=== PATIENT | male | born 1965 | race Caucasian/White ===

== ENCOUNTER 2024-06-22 10:59 | Emergency (ER) | payer OTHER ==
[~2024-06-22] VITALS: Ht 165.1 cm; Wt 72.6 kg
[2024-06-22 11:05] VITALS: BP 121/69; TEMP 98; O2SAT 99
[2024-06-22] MEDS ORDERED: ACETAMINOPHEN ES 500 MG TABLET ONE (11:34)
[2024-06-22] MEDS ORDERED: IBUPROFEN 600 MG TABLET ONE (11:34)
[2024-06-22] MEDS: ACETAMINOPHEN ES 500 MG TABLET PO ONE (11:36)
[2024-06-22] MEDS: IBUPROFEN 600 MG TABLET PO ONE (11:36)
[2024-06-22] MEDS ORDERED: KETO10TA2 PO (13:48)
== END 2024-06-22 14:13 | disposition home or self-care (01) ==
LOC: ER 11:21
DX: S92.414A Nondisplaced fracture of proximal phalanx of right great toe, initial encounter for closed fracture (principal); S97.81XA Crushing injury of right foot, initial encounter; F19.10 Other psychoactive substance abuse, uncomplicated; Z59.00 Homelessness unspecified; W23.0XXA Caught, crushed, jammed, or pinched between moving objects, initial encounter; Y93.89 Activity, other specified; Y92.89 Other specified places as the place of occurrence of the external cause; Y99.8 Other external cause status
CPT/HCPCS: 73630-TC

== ENCOUNTER 2024-07-16 09:01 | Emergency (ER) | payer OTHER ==
[~2024-07-16] VITALS: Ht 180.3 cm; Wt 72.6 kg
[~2024-07-16 09:01] MED LIST: KETO10TA2 PO
[2024-07-16 09:17] VITALS: BP 146/104; TEMP 97.9
[2024-07-16] MEDS ORDERED: CLIN300C12 PO (09:30)
[2024-07-16] MEDS ORDERED: PERM60CR6 TP (09:30)
[2024-07-16 09:50] VITALS: O2SAT 99
== END 2024-07-16 09:50 | disposition home or self-care (01) ==
LOC: ER 09:17
DX: R20.2 Paresthesia of skin (principal); L03.114 Cellulitis of left upper limb; Z59.00 Homelessness unspecified

== ENCOUNTER 2024-07-20 09:47 | Emergency (ER) | payer OTHER ==
[~2024-07-20] VITALS: Ht 170.2 cm; Wt 72.6 kg
[~2024-07-20 09:47] MED LIST changes: +CLIN300C12 PO; +PERM60CR6 TP
[2024-07-20] MEDS ORDERED: PERM60CR6 TP (10:32)
[2024-07-20] MEDS ORDERED: CLIN300C12 PO (10:32)
[2024-07-20 10:51] VITALS: BP 119/77; TEMP 98; O2SAT 98
== END 2024-07-20 10:51 | disposition home or self-care (01) ==
LOC: ER 09:53
DX: L03.114 Cellulitis of left upper limb (principal); Z76.0 Encounter for issue of repeat prescription; Z59.00 Homelessness unspecified

== ENCOUNTER 2024-07-30 12:17 | Emergency (ER) | payer OTHER ==
[~2024-07-30] VITALS: Ht 177.8 cm; Wt 74.8 kg
[2024-07-30 13:04] VITALS: BP 128/84; TEMP 98
[2024-07-30] MEDS ORDERED: SULF1TAB48 PO (13:12)
[2024-07-30] MEDS ORDERED: CEPH-570 PO (13:12)
[2024-07-30 13:16] VITALS: O2SAT 98
== END 2024-07-30 13:16 | disposition home or self-care (01) ==
LOC: ER 12:46
DX: S60.512A Abrasion of left hand, initial encounter (principal); S60.511A Abrasion of right hand, initial encounter; S00.81XA Abrasion of other part of head, initial encounter; S90.811A Abrasion, right foot, initial encounter; L98.9 Disorder of the skin and subcutaneous tissue, unspecified; F19.10 Other psychoactive substance abuse, uncomplicated; Z60.2 Problems related to living alone; Z59.00 Homelessness unspecified; X58.XXXA Exposure to other specified factors, initial encounter; Y93.89 Activity, other specified; Y92.89 Other specified places as the place of occurrence of the external cause; Y99.8 Other external cause status

== ENCOUNTER 2024-08-14 05:13 | Emergency (ER) | payer OTHER ==
[~2024-08-14] VITALS: Ht 175.3 cm; Wt 79.4 kg
[~2024-08-14 05:13] MED LIST changes: +CEPH-570 PO; +SULF1TAB48 PO
[2024-08-14] MEDS ORDERED: TDAP [DIPH/PERTUSSIS/TET] 0.5 ML VIAL IM ONE (06:39)
[2024-08-14] MEDS: TDAP [DIPH/PERTUSSIS/TET] 0.5 ML VIAL IM ONE (06:42)
[2024-08-14] MEDS ORDERED: LIDOCAINE 1% INJ 50 ML MDV IJ ONE (07:02)
[2024-08-14] MEDS ORDERED: TETRAcaine 5 ML BOTTLE ONE (07:02)
[2024-08-14] MEDS ORDERED: FLUORESCEIN SODIUM OPHTH 1 EA STRIP ONE (07:03)
[2024-08-14] MEDS: LIDOCAINE 1% INJ 50 ML MDV IJ ONE (07:14)
[2024-08-14] MEDS: TETRAcaine 5 ML BOTTLE LEFTEYE ONE (07:14)
[2024-08-14] MEDS: FLUORESCEIN SODIUM OPHTH 1 EA STRIP OP ONE (07:15)
[2024-08-14 10:29] VITALS: BP 128/78; TEMP 98.3; O2SAT 98
== END 2024-08-14 10:31 | disposition left against medical advice (07) ==
LOC: ER 05:20
DX: S02.32XA Fracture of orbital floor, left side, initial encounter for closed fracture (principal); S01.112A Laceration without foreign body of left eyelid and periocular area, initial encounter; S01.81XA Laceration without foreign body of other part of head, initial encounter; F17.200 Nicotine dependence, unspecified, uncomplicated; G44.309 Post-traumatic headache, unspecified, not intractable; Z59.00 Homelessness unspecified; X58.XXXA Exposure to other specified factors, initial encounter; Y93.89 Activity, other specified; Y92.89 Other specified places as the place of occurrence of the external cause; Y99.8 Other external cause status
CPT/HCPCS: 99285; 70450; 90471; 90715; 70486; 12011; J3490; A6403

== ENCOUNTER 2024-09-17 02:45 | Emergency (ER) | payer OTHER | END 2024-09-17 04:29 | disposition left against medical advice (07) | LOC: ER 02:45 | DX: T14.90XD Injury, unspecified, subsequent encounter (principal); Z53.21 Procedure and treatment not carried out due to patient leaving prior to being seen by health care provider; X58.XXXD Exposure to other specified factors, subsequent encounter ==

== ENCOUNTER 2024-11-19 20:01 | Emergency (ER) | payer OTHER ==
[~2024-11-19] VITALS: Ht 177.8 cm; Wt 68.0 kg
[2024-11-19 23:04] VITALS: BP 121/90; TEMP 97.1; O2SAT 100
[2024-11-19] MEDS ORDERED: PERM60CR4 TP (23:48)
== END 2024-11-20 06:15 | disposition home or self-care (01) ==
LOC: ER 20:04
DX: R21 Rash and other nonspecific skin eruption (principal); F17.200 Nicotine dependence, unspecified, uncomplicated; Z59.00 Homelessness unspecified; Z79.899 Other long term (current) drug therapy